=== PATIENT | male | born 1940 | race Caucasian/White ===

== ENCOUNTER 2024-03-20 17:31 | Emergency (ER) | payer MEDICARE, OTHER, SELFPAY ==
[2024-03-20 17:32] VITALS: BP 153/85; PULSE 108; RESP 14; TEMP 36.8; O2SAT 96; BMI 35.1
[2024-03-20 17:34] VITALS: O2SAT 96
[2024-03-20 17:54] LABS: Absolute Lymphocyte Count 0.79 X10^3/uL (0.83-4.51); Absolute Neutrophil Count 6.6 X10^3/uL (2.0-7.7); Basophil# 0.02 X10^3/uL; Basophil% 0.3 % (0-1); Eosinophil# 0.06 X10^3/uL; Eosinophils% 0.8 % (0-5); Hematocrit 39.6 % (40-54); Lymphocyte # 0.79 X10^3/ul (0.83-4.51); Mean Corp Hgb Conc 32.8 g/dL (32-36); Mean Corpuscular Hgb 30.7 pg (27.0-32.0); Mean Corpuscular Volume 93.6 fL (80-94); Mean Platelet Vol. 9.5 fl (6.2-12.0); Monocyte# 0.42 X10^3/uL; Monocyte% 5.3 % (0-10); NRBC Flagged by Analyzer 0 % (0-5); Neutrophil % 83.2 % (47-70); Platelet Count 243 K/mm3 (150-450); RBC Distribution Width CV 13.4 % (11.6-14.6); RBC Distribution Width SD 45.8 fl (35.1-43.9); Red Blood Count 4.23 M/mm3 (4.6-6.2); White Blood Count 7.9 K/mm3 (4.4-11.0)
[2024-03-20 18:14] LABS: Anion Gap 9 (5-15); BUN 13 mg/dL (7-18); BUN/Creat Ratio 15.2 RATIO (10-20); Chloride 96 mmol/L (98-107); Creatinine, Serum 0.86 mg/dL (0.70-1.30); EST Glomerular Filtration Rate 91 mL/min (>60); Est Glom Filt Rate - Afr Amer 110 mL/min (>60); Estimated Creatinine Clearance 86.13 ml/min; Glucose 115 mg/dL (74-106); Potassium 3.8 mmol/L (3.5-5.1); Sodium Level 133 mmol/L (136-145); Troponin-I HS (w/2H Reflex) 7 pg/mL (3.0-78.0)
[2024-03-20] MEDS: Aspirin 81 MG TAB.CHEW 324 MG PO (18:16)
--- NOTE | 2024-03-20 18:25 | RAD_ITS ---
STUDY: X-RAY CHEST REASON FOR EXAM: Male, 83 years old. chest pain TECHNIQUE: AP portable COMPARISON: None. FINDINGS: There is less than optimal inspiratory effort and minor bibasilar interstitial thickening. There is no demonstrated pleural abnormality. Normal size heart. Normal mediastinum and mora. Normal visualized pulmonary arteries. Normal visualized aortic arch and descending thoracic aorta. Normal visualized thoracic spine. Normal visualized ribs, and clavicles. Bilateral shoulder prostheses. There is no demonstrated abnormality of the visualized soft tissue structures of the upper abdomen. RAD/Chest 1 View (Portable) IMPRESSION: Diminished inspiratory effort and minor bibasilar interstitial thickening. No acute cardiopulmonary pathology. Electronically Signed: Demian Worthington MD at 19:05 EDT ,
--- NOTE | 2024-03-20 19:22 | ED.VIS.CHEST ---
HPI History of Present Illness Chief Complaint: Chest Pain Informant: patient and family Narrative Narrative: Presents here with son and [id number] for evaluation chest pressure started while driving between 130 and 2:30 PM. Was coming back from [place]. He states he had trouble breathing which improved currently. No recent cough. No radicular pain. No pain in the neck or back. No history of similar. Hypertension and hyperlipidemia on medications. He is followed by cardiology Dr. Daugherty in [place]. He sees him for blood pressure checks. No history of heart cath. Stress test 20 years ago. No tobacco history. A week ago drove to [place]. No leg swelling or cramping. No history of PE or DVT. Current evaluation symptoms have subsided. Prior Similar Symptoms: No Recent Illness/Hospitalization: No CVD Risk Factors: Positive for Hypertension and Hypercholesterolemia; Negative for Diabetes, Family History 1' </=55 or Smoking PE Risk Factors: Positive for Recent Travel/Surgery; Negative for Recent Immobilization or Prior DVT or PE [facility] Medical History EDUARDO (obstructive sleep apnea) HTN (hypertension) HLD (hyperlipidemia) Iron deficiency anemia Home Medications ?Medication ?Instructions ?Recorded ?Last Taken ?Type aspirin 81 mg tablet,delayed 81 mg PO DAILY 12/15/22 Unknown History release (Adult Aspirin Regimen) lisinopril 10 1 tab PO DAILY 12/15/22 Unknown History mg-hydrochlorothiazide 12.5 mg tablet tamsulosin 0.4 mg capsule 0.4 mg PO DAILY 03/20/24 Unknown History Allergy/AdvReac Type Severity Reaction Status Date / Time No Known Allergies Allergy Verified 03/20/24 18:24 Surgical History History of repair of hiatal hernia S/P total knee arthroplasty Social History Smoking Status: Former smoker quit date: 07/04/89 alcohol intake: current alcohol intake frequency: a few times a week Alcohol type: beer ROS ROS ED Constitutional Constitutional ED: Denies chills, fever(s) or sweats Eyes Eyes: Denies change in vision ENT ENT ED: Denies dysphagia or sore throat Cardiovascular Cardiovascular: Reports chest pain; Denies leg edema, palpitations or racing heartbeat Respiratory/Chest Respiratory/Chest: Reports dyspnea; Denies cough or dyspnea on exertion Gastrointestinal Gastrointestinal: Denies abdominal pain, diarrhea, nausea or vomiting Genitourinary Genitourinary ED: Denies dysuria, hematuria or urinary frequency Musculoskeletal Musculoskeletal: Denies back pain, extremity pain or neck pain Integumentary Denies rash or wounds Neurologic Neurologic: Denies headache(s), paresthesias or weakness EXAM Physical Exam Const Vital Signs: 03/20/24 17:32 03/20/24 17:34 03/20/24 18:21 Temperature 98.3 F Temperature Source Temporal Pulse Rate 108 H Respiratory Rate 14 Respiratory Effort Normal Blood Pressure 153/85 H Blood Pressure Mean 107 Pulse Ox 96 96 Oxygen Delivery Method Room Air Room Air 03/20/24 19:31 03/20/24 21:00 03/20/24 22:02 Temperature 97.8 F Temperature Source Pulse Rate 96 95 91 Respiratory Rate 14 18 18 Respiratory Effort Blood Pressure 140/89 H 130/71 H 133/71 H Blood Pressure Mean 106 90 91 Pulse Ox 95 96 97 Oxygen Delivery Method Room Air Positive well nourished and well developed General Appearance ED: well developed and NAD HEENT Reports moist mucous membranes normocephalic and atraumatic Eyes EOMs intact bilaterally and conjunctivae normal General Eye ED: Yes normal appearance of both eyes Neck no lymphadenopathy and supple General: Negative for tenderness Chest Wall Chest: Negative for tenderness Resp normal respiratory effort and normal air movement Effort and Inspection: symmetric chest movement; Negative for respiratory distress Cardio regular rate, regular rhythm and no murmurs Rate: other Other Details: Heart rate during my examination 96. Peripheral Pulses: pulses 2+ throughout GI normal to inspection, nondistended, normoactive bowel sounds and non-tender Palpation: Negative for guarding or rebound tenderness present Back/Spine no CVA tenderness and no thoracic nor lumbar tenderness Extremity normal to inspection General Extremety ED: Negative for edema or tenderness General Extremity: Negative for edema Neuro oriented x3 and no sensory deficits noted Sensorium / Orientation: awake and alert Skin no rashes or lesions noted and no wounds Heart Score History: Slightly/Non-Suspicious ECG: Normal Age: >/= 65 years Risk Factors: 1 or 2 Risk Factors Troponin: </= Normal Limit Score: 3 MDM MDM MDM Narrative Medical decision making narrative: Interventions / MDM: Differential diagnosis: Chest pain Diagnosis considered but do not suspect: ACS however EKG admitted cardiac enzymes. Pulmonary embolism however CTA negative. My EKG interpretation: Sinus rate of 107, no ST or T wave changes. Imaging independently reviewed and interpreted by myself: 1 view chest x-ray: No acute process. CT angiogram of the chest: No PE. Atelectasis noted. Also read by radiology. External documents reviewed: N/A Test considered but not ordered:N/A ED course: Busy department patient's workup started through triage. EKG sinus tachycardia currently in the 90s on my evaluation. Labs stable initial troponin 7. Low risk Wells criteria for for PE with tachycardia and recent travel. D-dimer is added. Repeat troponin negative. Elevated dimer with subsequent CTA chest was negative. On reevaluation patient was symptom-free. Low heart score with symptom-free. 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 All questions were answered. Re-evaluation: stable Disposition discussed with patient/family/significant other: Patient and family Case discussed with consulting clinician: N/A This note was generated with [employer] dictation software. It may contain incorrect words, spelling, and punctuation that were not noted in checking the note before signing. Lab Data Attestation: I reviewed the patient's lab results. Labs: Laboratory Results - last 24 hr 03/20/24 03/20/24 17:40 19:42 WBC 7.9 RBC 4.23 L Hgb 13.0 Hct 39.6 L MCV 93.6 MCH 30.7 MCHC 32.8 RDW Std Deviation 45.8 H RDW Coeff of Antonette 13.4 Plt Count 243 MPV 9.5 Immature Gran % (Auto) 0.400 Neut % (Auto) 83.2 H Lymph % (Auto) 10.0 L [place] % (Auto) 5.3 Eos % (Auto) 0.8 Baso % (Auto) 0.3 Absolute Neuts (auto) 6.6 Absolute Lymphs (auto) 0.79 L Nucleated RBC % 0 D-Dimer Quant (PE/DVT) 1.38 H* Sodium 133 L Potassium 3.8 Chloride 96 L Carbon Dioxide 28.0 Anion Gap 9 BUN 13 Creatinine 0.86 Estim Creat Clear Calc 86.13 Est GFR (MDRD) Af Amer 110 Est GFR (MDRD) Non-Af 91 BUN/Creatinine Ratio 15.2 Glucose 115 H Calcium 10.0 Troponin I High Sens 7 9 Radiography Diagnostic Testing: Clinical Impression(s) from Imaging Studies Chest X-Ray 03/20/24 18:25 IMPRESSION: Diminished inspiratory effort and minor bibasilar interstitial thickening. No acute cardiopulmonary pathology. Electronically Signed: Demian Worthington MD at 19:05 EDT , Chest CTA 03/20/24 20:54 IMPRESSION: Minor subsegmental atelectasis or scarring in the right lower lobe and left upper lobe Old granulomatous disease on the right. No evidence for pulmonary embolus. Electronically Signed: Demian Worthington MD at 21:46 EDT , Discharge Plan Triage Chief Complaint: Chest Pain ED Provider: Satish Davis Dx/Rx/DC Orders Clinical Impression: Chest pain, History of hypertension Instructions: ED Chest Pain, Uncertain Cause Prescriptions: No Action aspirin [Adult Aspirin Regimen] 81 mg tablet,delayed release (DR/EC) 81 mg PO DAILY lisinopril-hydrochlorothiazide 10-12.5 mg tablet 1 tab PO DAILY tamsulosin 0.4 mg capsule 0.4 mg PO DAILY Primary Care Provider: SHAILESH LÓPEZ Referrals: SHAILESH LÓPEZ [Other] - 3-5 Days Activity Restrictions/Additional Instructions: Cardiac workup negative in the ED. Your CT angiogram chest negative for any pulmonary embolism. Follow-up with your cardiac team for further testing as outpatient as needed. Symptoms return or worsens, return to the ED for reevaluation. Print Language: Somali Disposition Disposition: Home, Self Care Discharge Date/Time: 03/20/24 22:12
[2024-03-20 19:31] VITALS: BP 140/89; PULSE 96; RESP 14; O2SAT 95
[2024-03-20 19:48] LABS: Reflex Troponin-HS? (from REC) Y
[2024-03-20 20:23] LABS: D-Dimer Quantitative (DVT/PE) 1.38 FEU/ug/m (0.27-0.49)
[2024-03-20 20:38] LABS: Troponin-I HS 9 pg/mL (3.0-78.0)
--- NOTE | 2024-03-20 20:54 | CT_ITS ---
STUDY: CTA CHEST REASON FOR EXAM: Male, 83 years old. chest pain, elevated dimer RADIATION DOSAGE (If Supplied By Facility): CTDIvol = ( 12.64 ) mGy, DLP = ( 591.36 ) mGycm TECHNIQUE: The examination was performed with the intravenous administration of IV 100mL Isovue-370. Post-processing of the angiographic images was performed, with multiplanar reformation and 3D reconstruction. Individualized dose optimization techniques were used for this CT. COMPARISON: None. FINDINGS: Normal enhancement of the main pulmonary artery and right and left pulmonary arteries. Normal enhancement of the bilateral peripheral pulmonary arteries. There is no demonstrated pulmonary embolism. Atherosclerotic change of the aorta without evidence for aneurysm There is no demonstrated aortic dissection. Heart is enlarged and there is minor coronary artery calcification. Subcentimeter mediastinal nodes likely benign.. Tiny calcified right hilar nodes Normal visualized trachea and bronchi. The lungs are well expanded. There is minor subsegmental atelectasis or scarring in the right lower lobe and left upper lobe... Calcified granuloma in the right upper lobe Normal pleura. Normal chest wall structures. Dorsal spine demonstrates degenerative change. Old unfused left rib fractures Large intrathoracic hernia containing both stomach and intra-abdominal fat Simple cyst in the upper pole of the right kidney which will not require additional imaging. Multiple tiny granulomatous calcifications in normal size spleen CT/CTA Chest W/WO Contrast IMPRESSION: Minor subsegmental atelectasis or scarring in the right lower lobe and left upper lobe Old granulomatous disease on the right. No evidence for pulmonary embolus. Electronically Signed: Demian Worthington MD at 21:46 EDT ,
[2024-03-20 21:00] VITALS: BP 130/71; PULSE 95; RESP 18; O2SAT 96
[2024-03-20] MEDS: 0.9% Normal Saline (500mL Bag) 500 ML 999 ML IV (21:05)
[2024-03-20 22:02] VITALS: BP 133/71; PULSE 91; RESP 18; TEMP 36.6; O2SAT 97
== END 2024-03-20 22:12 | disposition home or self-care (01) ==
PROVIDERS: Emergency Provider Emergency Medicine; Visit Provider Emergency Medicine
DX: R07.9 Chest pain, unspecified (principal); E78.00 Pure hypercholesterolemia, unspecified; I10 Essential (primary) hypertension; G47.33 Obstructive sleep apnea (adult) (pediatric); Z79.82 Long term (current) use of aspirin; Z79.899 Other long term (current) drug therapy; Z87.891 Personal history of nicotine dependence
CPT/HCPCS: 71045; 71275; 80048; 84484; 85025; 85379; 93005; 96360; 99284; J7040; Q9967; A4216

== ENCOUNTER → 2024-10-26 | Outpatient (CLI) | payer MEDICARE, OTHER, SELFPAY ==
--- NOTE | 2024-10-26 13:22 | LES_PTH ---
PATIENT: DEYVI SAUCEDO LOC: [facility] U#:[id number] AGE/SX: 84/M ROOM: RE10/26/[address]: Dr. Noah Chirinos MD : 1940 BED: DIS: 10/26/2024 SPEC #: [id number] RECD: 10/26/24 17:01 STATUS: DOM CURTIS #: [id number] BARBARA: 10/26/24 13:[address]: Noah Chirinos DEPT: SURGICAL PATHOLOGY RECD BY: Mi Lee Tissues: Skin of buttock, NOS Procedures: Surgery Specimen Level IV HEADER OPERATION: Biopsy PRE-OP DIAGNOSIS: Buttock lesion TISSUE SUBMITTED: A- Right buttock lesion *short- superior, long- lateral* MICROSCOPIC DIAGNOSIS A. Skin, right buttock, lesion, excision: * Lichen simplex chronicus. MICROSCOPIC DESCRIPTION Slides are reviewed. GROSS DESCRIPTION A. Received in formalin in a container labeled with the patient's name, date of , and right buttock lesion short superior, long lateral is an oriented, elliptical white-webb skin excision with a short stitch indicating superior margin and long stitch indicating lateral margin. The specimen is 1.8 cm from medial to lateral, 0.9 cm from superior to inferior, with a depth ranging from 0.3 to 0.9 cm. The epidermis is diffusely roughened and granular with a 0.3 x 0.1 cm previously disrupted cavity. The cavity is situated to the margins as follows:Superior: 0.4 cmInferior: 0.3 cmLateral: 0.6 cmMedial: 1.1 cm The superior half is inked black, and the inferior half is inked green. The specimen is serially sectioned from lateral to medial to reveal that the granular area and cavity appear confined to the epidermis. The specimen is entirely submitted as follows:A1. Lateral tip, perpendicularA2. Midportion of specimenA3. Medial tip, perpendicular [facility] 10-29-2024 CPT:20893
== END | disposition home or self-care (01) ==
LOC: LABSPEC 17:08
PROVIDERS: Referring Provider Surgery Plastic and Reconstructive Surgery; Visit Provider Surgery Plastic and Reconstructive Surgery
DX: L98.9 Disorder of the skin and subcutaneous tissue, unspecified (principal)
CPT/HCPCS: 88305